=== PATIENT | female | born 1950 | race Caucasian/White ===

== ENCOUNTER 2017-01-05 19:14 | Emergency (ER) | payer OTHER, MEDICARE ==
[~2017-01-05 19:14] MED LIST: ACIDOPHILUS1 CAP PO; AMOX-CLAV 500-1 EACH PO; ANTIVERT 25MG #1 PAC PO; AUGMENTIN 500M500 MG PO; AUGMENTIN 875 M1 TAB PO; CALCIUM 600600 M1 PO; CELEXA40 MG PO; COUMADIN 5 MG TA5 MG PO; DOCUSATE SODIU100 MG PO; ENALAPRIL20 MG PO; ESCITALOPRAM OX10 MG PO; GABAPENTIN TAB600 MG PO; LANSOPRAZOLE15 MG PO; LEXAPRO 20MG M20 MG PO; LIDODERM 5% PAT1 PAT TOP; NEURONTIN300 MG PO; NORCO 325 MG-101 TAB PO; PERCOCET 325 MG1 TA2 PO; PRAVASTATIN40 MG PO; PREVACID 30MG30 MG PO; RITE AID BIO2500 MCG PO; RITE AID MAGNE500 MG PO; SOMA350 M1 PO; VASOTEC5 MG PO; VITAMIN C500 M3 PO; VITAMIN D31000 IU PO; WELLBUTRIN XL150 MG PO; WELLBUTRIN100 M1 PO; ZOLPIDEM TART5 MG PO
--- NOTE | 2017-01-05 21:26 | ED GI/GU/ABDOMINAL COMPLAINT ---
History of Present Illness General Chief Complaint: Female Urogenital Problems Stated Complaint: FREQUENCY AND URGENCY WITH URINATION Source: patient Exam Limitations: no limitations Vital Signs & Intake/Output Vital Signs & Intake/Output Vital Signs Date Time Temp Pulse Resp B/P Pulse O2 O2 Flow FiO2 Ox Delivery Rate 01/059 98.7 63 20 159/79 99 Room Air 01/05 1931 98.9 64 22 162/82 98 ED Intake and Output 01/06 0000 01/05 1200 Intake Total Output Total Balance Patient 155 lb Weight Allergies Coded Allergies: Sulfa (Sulfonamide Antibiotics) (ANAPHYLAXIS 08/16/16) mushroom (ANAPHYLAXIS 08/16/16) shellfish derived (05/16/16) Uncoded Allergies: BASALMIC VINEGAR (ANAPHYLAXIS 04/06/15) ENVIRONMENTAL (CONGESTION, SNEEZING, ITCHY EYES 04/06/15) PRESERVATIVES (ANAPHYLAXIS 04/06/15) Reconcile Medications Amoxicillin/Potassium Clav (Amox-Clav 500-125 MG Tablet) 500 MG-125 MG TABLET 1 TAB PO DAILY ANTIBIOTIC (Reported) Ascorbic Acid (Vitamin C) 500 MG TAB 1 TAB PO DAILY SUPPLEMENT (Reported) Augmentin (Augmentin 500-125 Tablet) 500 MG-125 MG TABLET 1 TAB PO BID UTI Biotin ([facility] Biotin) (Unknown Strength) CAP 1 CAP PO DAILY SUPPLEMENT ( Reported) Bupropion Hydrochloride (Wellbutrin XL) 150 MG T24 1 TAB PO DAILY MENTAL HEALTH (Reported) Calcium Carbonate (Calcium 600) (Unknown Strength) TAB 1 TAB PO DAILY SUPPLEMENT (Reported) Carisoprodol (SOMA) 350 MG TABLET 1 TAB PO TIDPRN PRN PAIN (Reported) Cholecalciferol (Vitamin D3) 1,000 IU TAB 1 TAB PO DAILY SUPPLEMENT (Reported ) Enalapril Maleate 20 MG TABLET 1 TAB PO DAILY BP (Reported) Escitalopram Oxalate 10 MG TABLET 1 TAB PO QAM MENTAL HEALTH (Reported) Gabapentin (Gabapentin Tab 600MG) 600 MG TABLET 1 TAB PO TID MENTAL HEALTH ( Reported) Lactobacillus Acidophilus (Acidophilus) 1 CAP CAP 1 CAP PO DAILY PROPHYLAXIS BLADDER INFECTIONS (Reported) Magnesium ([facility] Magnesium) 500 MG CAP 1 CAP PO DAILY SUPPLEMENT (Reported ) Pravastatin Sodium (Pravastatin) 40 MG TAB 1 TAB PO DAILY CHOLESTEROL ( Reported) Triage Note: PER PT UTI SYMPTOMS X 1 WEEK REQUESTS STRAIGHT CATH PT REPORTS FREQ UTIS AND CLEAN CATH ARE POOR FOR CULTURES. RESISTANT TO MOST ANTIBIOTICS. Triage Nurses Notes Reviewed? yes ? N Is pt currently ? No Onset: Gradual Duration: constant Timing: recent history Quality/Severity: mild Severity Numbers: 3 Location: suprapubic, urethral Radiation: no radiation Activities at Onset: none Prior Abdominal Problems: similar symptoms HPI: Patient is a 66-year-old female with past medical history of recurrent UTIs who presents TO ER with a five-day history of urge of frequency of urination and increased frequency of urination. Denies any dysuria but does have mild suprapubic abdominal discomfort. Denies any fever chills is able tolerate by mouth denies any back pain. Patient had requested a straight cath upon arrival which this was obtained (JASMIN ROSALES) Past History Travel History Traveled to Any past 21 day No Medical History Any Pertinent Medical History? see below for history Neurological: NONE EENT: BROKEN NOSE Cardiovascular: hypertension, hyperlipidemia Respiratory: NONE Gastrointestinal: GERD Hepatic: NONE Renal: CHRONIC UTI BLADDER LIFT KIDNEY STONES Musculoskeletal: fibromyalgia, osteoarthritis, LUMBAR FUSION TOTAL HIP REPLACEMENT Psychiatric: depression Endocrine: NONE Blood Disorders: NONE Cancer(s): NONE CHILD PSYCHOLOGIST/Reproductive: NONE Surgical History Surgical History: left total hip arthroplasty r hip arthoplasty Psychosocial History Who do you live with Spouse Services at Home None What is your primary language Turkish Tobacco Use: Never used Family History Family History, If Any: Relation not specified for: *No pertinent family history Hx Contributory? No (JASMIN ROSALES) Review of Systems Review of Systems Constitutional: Reports: no symptoms. EENTM: Reports: no symptoms. Respiratory: Reports: no symptoms. Cardiovascular: Reports: no symptoms. GI: Reports: see HPI. Genitourinary: Reports: see HPI. Musculoskeletal: Reports: no symptoms. Skin: Reports: no symptoms. Neurological/Psychological: Reports: no symptoms. Hematologic/Endocrine: Reports: no symptoms. Immunologic/Allergic: Reports: no symptoms. All Other Systems: Reviewed and Negative (JASMIN ROSALES) Physical Exam Physical Exam General Appearance: no apparent distress, alert Gastrointestinal: normal bowel sounds, soft, MILD SUPRAPUBIC POINT TENDERNESS NO RIGHT LOWER QUADRANT PAIN NO PERITONEAL SIGNS Comments: Well-developed well-nourished person in no acute distress HEENT: Normal EENT exam, . Neck: Supple, no lymphadenopathy, normal range of motion without pain or tenderness Back: Nontender, no CVA tenderness. Cardiovascular: Regular rate and rhythms no murmurs rubs or gallops, normal JVP Respiratory: Chest nontender. No respiratory distress.breath sounds clear to auscultation bilaterally Extremity: No edema, no calf tenderness to palpation, normal and equal pulses. Neuro: Alert oriented x3, motor sensory normal, Skin: No appreciable rash on exposed skin, skin is warm and dry. Psych: Mood and affect is normal, memory and judgment is normal. Core Measures ACS in differential dx? No Severe Sepsis Present: No Septic Shock Present: No (JASMIN ROSALES) Progress Differential Diagnosis: AAA, AMI, appendicitis, biliary colic, bowel obstruction , colon cancer, cholecystitis, diverticulitis, endometritis, esophageal varices, gastritis, hepatitis, hernia, hemorrhoids, ischemic bowel, inflamm bowel dis, kidney stone, Jeri-Sara tear, ovarian cyst, ovarian torsion, pancreatitis, PID/cervicitis, peptic ulcer, PUD/GERD, perforated viscous, SBO, UTI/pyelo Plan of Care: Orders Procedure Date/time Status CULTURE,URINE 01/05 1929 Active URINALYSIS 01/05 1929 Complete Laboratory Tests 01/05/172010: Urinalysis LIGHT H, Urine Color STRAW, Urine Clarity CLEAR, Urine pH 6.0, Ur Specific [place] 1.010, Urine Protein NEG, Urine Ketones NEG, Urine Nitrite NEG, Urine Bilirubin NEG, Urine Urobilinogen 0.2, Ur Leukocyte Esterase SMALL H, Ur Microscopic SEDIMENT EXAMINED, Urine RBC RARE, Urine WBC 3-5 H, Urine Hemoglobin SMALL H, Urine Glucose NEG Microbiology 01/05 2011 URINE ROUT: Urine Culture - RECD Patient has minimal concerned of urinary tract infection however urine culture was obtained patient was requesting antibiotics due to history of pyelonephritis patient was strongly advised to follow-up with culture results. It is noted in past findings the patient had Escherichia coli from urine culture Patient at this time shows no concerns of pyelonephritis was afebrile was able tolerate by mouth no right lower quadrant pain concerns of appendicitis (JASMIN ROSALES) Initial ED EKG: none (JASMIN ROSALES) Departure Departure Disposition: HOME OR SELF CARE Condition: Stable Clinical Impression Primary Impression: UTI (urinary tract infection) Referrals: RACIEL HEREDIA DO (PCP/Family) Additional Instructions: As discussed begin the prescription of Augmentin as directed for the full course , prescriptions waiting a [facility] pharmacy. Follow up with your urologist in 5 days for recheck of symptoms. If symptoms worsen return to emergency room. Call the emergency room in 2 days for culture results if negative YOU may discontinue the antibiotic Departure Forms: Customer Survey General Discharge Information Prescriptions: Current Visit Scripts Augmentin (Augmentin 500-125 Tablet) 1 TAB PO BID #20 TAB (JASMIN ROSALES) PA/WEB SITE DESIGNER Co-Sign Statement Statement: ED Attending supervision documentation- x I saw and evaluated the patient. I have also reviewed all the pertinent lab results and diagnostic results. I agree with the findings and the plan of care as documented in the PA's/WEB SITE DESIGNER's documentation. [] I have reviewed the ED Record and agree with the PA's/WEB SITE DESIGNER's documentation. [] Additions or exceptions (if any) to the PAs/WEB SITE DESIGNER's note and plan are summarized below: [] (GAIL BYRD,LIU)
[2017-01-05] MEDS ORDERED: AUGMENTIN 500-1 EACH PO (21:35)
[2017-01-05 21:39] VITALS: BP 159/79
== END 2017-01-05 21:40 ==
LOC: ERH 19:14
DX: N39.0 Urinary tract infection, site not specified (principal)
CPT/HCPCS: 81001; 87086

== ENCOUNTER → 2018-02-28 | Day surgery (SDC) | payer OTHER, MEDICARE ==
[~2018-02-28] VITALS: Ht 165.1 cm; Wt 70.3 kg
[~2018-02-28] MED LIST changes: +ASPIRIN EC81 M1 PO; +AUGMENTIN 500-1 EACH PO; +BIOTIN1000 MC1 PO; +BUPROPION HCL150 M4 PO; +CARISOPRODOL350 M1 PO; +ENALAPRIL MALEA20 M1 PO; +FISH OIL 1,0001 EAC1 PO; +HYDROCODON-ACE1 EAC1 PO; +LIDODERM1 EACH TOP; +NEURONTIN600 M1 PO; +PRAVASTATIN SOD40 M2 PO; +ROBAXIN-750750 M1 PO; +VITAMIN B-121000 MC3 PO; +VITAMIN C500 M6 PO; +VITAMIN D1000 UNIT PO
--- NOTE | 2018-02-28 18:57 | Operative Report ---
Operative/Inv Procedure Report Surgery Date: 02/28/18 Name of Procedure: Infracture bilateral inferior turbinates separation nasal webbing left nares septoplasty right sided edge bander hand graft AlloDerm dorsal onlay repair lower lateral cartilage Pre-Operative Diagnosis: Nasal trauma with airway difficulties Post-Operative Diagnosis: same Estimated Blood Loss: less than 50ml Surgeon/Cleaning Team Member: Feliberto Pappas MD Anesthesia: general endotracheal tube Operative/Procedure Note Note: The patient was counseled extensively on multiple office visits in regards to the procedure the alternatives the risks and expected outcomes as relates to her request for surgical intervention to treat nasal dorsal irregularities in difficult airway following multiple nasal traumas. Discussed the reconstructive process and the possibility for the need of autologous tissue and the patient is hesitant to harvest rib or ear cartilage. On the shelf and she has excepting over those if needed. No guarantees were given whatsoever in regards to the ability to restore airway function were certainly the cosmetic appearance at the patient would like to see regarding the nose through reconstructive and insurance coverage methods. He talked about removal of any dorsal onlay graft to infection or wound complications. We talked about asymmetry of the nose carried to achieve desired results persistent and continuous airway obstruction perforated nasal mucosa bleeding and infection and pain. Once the patient understood this she signed informed consent. She was taken to the operating room placed supine on the table. Venodyne boots are placed and general anesthesia was established intravenous antibiotics were given. The face was prepped and draped in usual sterile fashion. Placed in bilateral nares. Local anesthesia was injected in the nose. Stairstep incision was made in the midportion of the columella extending in the infra-cartilaginous position bilaterally. Soft tissues were elevated images were fractured. Completely asymmetric. The soft tissue coverage was thick. The nasal septum after perichondrial flaps bilaterally were shown to be angulated approximately agrees cautery. Remnants were side and incongruous. Periosteum were present was elevated off the the fractured nasal bones. The portion of the nasal septum was harvested. It was small in amounts of quality cartilage. Enough was used for the edge bander hand graft on the right high-grade airflow obstruction on the right side preoperatively. After repair of the upper lateral cartilages with a transfixion suture with the right-sided edge bander hand graft fashionedonto itself dermal side out and fixed in proper position in the area of the significant traumatic depression. He. It was tacked in position with absorbable sutures. 5-0 nylon used to reapproximate fractured portions of the lower lateral GEN use. Torsion of the anterior septal angle was removed approximately 2 mm. A spanning suture was placed in the angulated portion of the inferior septum due to a paucity of usable cartilage. This improved the angulation seen. Vertical area was hemostatic was irrigated multiple times the wounds were closed with 6-0 nylon's and the columellar portion and 5-0 chromic's neuroma remainder of the incision. Steri-Strips were placed on the dorsum of the nose for edema control and stability of the AlloDerm. Nasal packing was placed after encompassing it in bacitracin bilaterally 1 with a central airway.
== END ==
LOC: STS 01:21
DX: S09.92XA Unspecified injury of nose, initial encounter (principal); W18.30XA Fall on same level, unspecified, initial encounter; J34.89 Other specified disorders of nose and nasal sinuses; J98.8 Other specified respiratory disorders; J34.3 Hypertrophy of nasal turbinates; G47.33 Obstructive sleep apnea (adult) (pediatric); I10 Essential (primary) hypertension; K21.9 Gastro-esophageal reflux disease without esophagitis; M79.7 Fibromyalgia; M19.90 Unspecified osteoarthritis, unspecified site
CPT/HCPCS: C9399; J0690; J1100; J2250; J2405; J2765; Q4116